=== PATIENT | male | born 1960 | race Caucasian/White ===

== ENCOUNTER 2019-05-05 10:10 | Outpatient (CLI) | payer BC ==
--- NOTE | 2019-05-05 11:00 | ULT ---
Renal sonogram with duplex evaluation HISTORY: Hypertension. FINDINGS: Right kidney measures up to 11.3 cm and the left 11.7 cm. Each has a normal appearance with out focal mass, stone, or hydronephrosis. Urinary bladder is unremarkable. Good color and spectral Doppler flow within the abdominal aorta and each renal artery. No abnormally elevated peak systolic velocities. Resistive index associated with the arcuate arteries of each kidney is 0.7. IMPRESSION: Normal exam.
== END 2019-05-05 10:11 | disposition home or self-care (01) ==
LOC: BICULT 10:10
PROVIDERS: ATTEND Nurse Practitioner Family
DX: I10 Essential (primary) hypertension (principal)
CPT/HCPCS: 76770; 93975

== ENCOUNTER 2020-12-18 17:30 | Outpatient (CLI) | payer BC | END 2020-12-18 17:31 | disposition home or self-care (01) | LOC: SLEEPLAB 17:30 | PROVIDERS: ATTEND Otolaryngology Plastic Surgery within the Head & Neck | DX: G47.33 Obstructive sleep apnea (adult) (pediatric) (principal); R53.83 Other fatigue; K21.9 Gastro-esophageal reflux disease without esophagitis; R06.83 Snoring; G47.00 Insomnia, unspecified | CPT/HCPCS: 95806 ==

== ENCOUNTER 2021-06-23 09:50 | Emergency (ER) | payer BC ==
[2021-06-23 10:43] LABS: #Eosinphils 0.1 thou/uL (0.0-0.7); #Lymphocytes 1.4 thou/uL (1.20-3.40); #Monocytes 1.1 thou/uL (0.11-0.59); #Neutrophils 8.7 thou/uL (1.40-6.50); %Basophils 0.2 % (0.0-1.0); %Eosinophils 0.5 % (0.0-10.0); %Lymphocytes 12.5 % (21.0-51.0); %Monocytes 9.6 % (0.0-10.0); %Neutrophils 77.3 % (42.0-75.0); Hemoglobin 15.3 g/dL (14.0-18.0); Mean Corpuscular HGB CONC 32.6 g/dL (32.0-36.0); Mean Corpuscular Hemoglobin 29.9 pg (27.0-31.0); Mean Corpuscular Volume 91.8 fL (78.0-98.0); Mean Platelet Volume 6.2 fL (7.4-10.4); Platelet Count 267 thou/uL (130-400); RBC Distribution Width 12.2 % (11.5-14.5); White Blood Cell (WBC) Count 11.3 thou/uL (4.8-10.8)
[2021-06-23 11:21] LABS: INR-International Normal Ratio 1.1; PTT 35.4 sec (22.9-36.1); Prothrombin Time 13.8 sec (12.0-14.7)
[2021-06-23 11:24] LABS: ALT (SGPT) 15 U/L (8-55); AST (SGOT) 16 U/L (5-34); Albumin 4.5 g/dL (3.4-4.8); Alkaline Phosphatase 77 U/L (40-110); Anion Gap 16 mmol/L (10-20); BUN (Urea Nitrogen) 10 mg/dL (8.4-25.7); Bilirubin, Total 1.4 mg/dL (0.2-1.2); Calc. Creatinine Clearance 0 mL/min (70-130); Calcium 10.1 mg/dL (7.8-10.44); Carbon Dioxide 31 mmol/L (23-31); Chloride 81 mmol/L (98-107); Globulin 3.2 g/dL (2.4-3.5); Glucose 98 mg/dL (80-115); Potassium 3.8 mmol/L (3.5-5.1); Protein, Total 7.7 g/dL (5.8-8.1); Sodium 124 mmol/L (136-145)
[2021-06-23 11:39] LABS: Acetaminophen Less than 10.0 mcg/mL (10.0-30.0); Alcohol Less than 10 mg/dL (Less than 10); Salicylate Less than 8.0 mg/dL (15.0-30.0)
[2021-06-23 12:38] LABS: Bilirubin Negative (Negative); Blood, Urine Negative (Negative); Clarity Clear (Clear); Glucose, Urine (Dipstick) Normal (Negative); Ketone, Urine Negative (Negative); Leukocyte Negative Leu/uL (Negative); Nitrite Negative (Negative); Protein, Urine (Dipstick) Negative (Neg-Trace); Specific Gravity, Urine 1.008 (1.002-1.036); Urobilinogen Normal mg/dL (Less than 2); pH, Urine 7.5 (5.0-9.0)
== END 2021-06-23 13:18 | disposition home or self-care (01) ==
LOC: ERS 09:50
DX: E86.0 Dehydration (principal); E87.1 Hypo-osmolality and hyponatremia; K21.9 Gastro-esophageal reflux disease without esophagitis; I10 Essential (primary) hypertension; F17.200 Nicotine dependence, unspecified, uncomplicated; Z79.899 Other long term (current) drug therapy
CPT/HCPCS: 36415; 80053; 80307; 81003; 83735; 83880; 83930; 83935; 84300; 84443; 85025; 85610; 85730; 99284